=== PATIENT | male | born 1990 | race African-American/Black ===

== ENCOUNTER 2020-08-15 03:11 | Emergency (ER) | payer MEDICARE, MEDICAID, SELFPAY ==
--- NOTE | ~2020-08-15 | CT_ITS ---
EXAMINATION: CT brain wo con DATE: 08/15/2020 03:59 INDICATION: Syncope. Cerebral palsy. TECHNIQUE: Computed tomography (CT) of the head was performed without intravenous contrast. The mA wa s adjusted according to patient size. Iterative reconstruction technique was employed. The dose-lengt h product was 605.33 mGy-cm. COMPARISON: None FINDINGS: There is symmetric chronic volume loss in the parietal lobes. There is no intracranial hemo rrhage, acute infarction, or abnormal intracranial mass lesion. There is ex vacuo dilatation of the p osterior bodies and occipital horns of the lateral ventricles. The orbits are normal. There is mild m ucosal thickening in the ethmoid sinuses. The mastoid air cells are normal. IMPRESSION: 1. Symmetric chronic volume loss in the parietal lobes. Reviewed, dictated and finalized at location A.
[2020-08-15 03:07] VITALS: BP 124/85; PULSE 80; RESP 87; TEMP 36.9; O2SAT 99
[2020-08-15 03:13] VITALS: BP 124/85; PULSE 75; RESP 20; TEMP 36.9; O2SAT 100
--- NOTE | 2020-08-15 03:14 | PC.NURSE ---
Pt presents to ED with complaints of constantly losing time after taking acyclovir. Pt states prior to loss of time his head become really itchy and then he black out . Pt states same episode occurred tonight while at work and in restroom. Pt states he doesn't remember going to the bathroom but he woke up approx 30 mins later unaware of what happened. Pt states he was sitting on toilet prior to loc and woke up and was still on the toilet; denies fall and hitting head. No obvious wounds or injuries to head or face. Pt noted to be a/o x4 and in no obvious distress with stable vitals. Call button and personal items within reach. Pt advised to press call button for assistance.
--- NOTE | 2020-08-15 03:22 | PC.NURSE ---
EDMD presented to bedside.
--- NOTE | 2020-08-15 03:31 | ECG_ITS ---
Measurements Intervals [place] Rate: 69 P: 30 UT: 191 QRS: 39 QRSD: 80 T: 40 QT: 393 QTc: 423 Interpretive Statements SINUS RHYTHM LEFT ATRIAL ENLARGEMENT BORDERLINE ECG Electronically Signed On 08-15-2020 14:35:00 CDT by Luciano Preston D.O.
--- NOTE | 2020-08-15 03:41 | ED.SYNCOPE ---
HPI - Syncope General Chief Complaint: Skin/Abscess/Foreign Body Stated Complaint: Scalp itching, loss of time Time Seen by Provider: 08/15/20 03:31 Source: patient Mode of arrival: ambulatory Limitations: no limitations History of Present Illness HPI narrative: Patient is a 29-year-old male complaining of a syncopal episode after a bowel movement. Patient states that he went to the restroom at work had a bowel movement and next thing he woke up and cannot recall what happened. 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 Patient denies any speech or visual disturbance, focal weakness or numbness. Patient denies any dizziness, neck pain, chest pain, shortness of breath, abd pain, nausea, vomiting, fever or chills. Patient currently asymptomatic at this time. Related Data Allergies Allergy/AdvReac Type Severity Reaction Status Date / Time ondansetron [From Zofran] Allergy Hives Verified 08/15/20 03:12 Review of Systems Review of Systems: All systems reviewed & are unremarkable except as noted in HPI and below Constitutional: Constitutional: Denies body ache(s), Denies chills, Denies excessive sweating, Denies fatigue, Denies fever(s), Denies headache(s), Denies lethargy, Denies malaise, Denies weakness and Denies weight loss Eyes: Eyes: Denies blurry vision, Denies change in vision and Denies loss of vision ENT: Denies dizziness, Denies ear discharge, Denies headache(s), Denies lip swelling, Denies epistaxis, Denies nasal congestion, Denies neck pain, Denies throat swelling and Denies tongue swelling Cardiovascular: Cardiovascular: Denies chest pain, Denies chest pain at rest, Denies chest pain with activity, Denies diaphoresis, Denies rapid heart rate, Denies edema, Denies irregular heart rhythm, Denies lightheadedness, Denies palpitations, Denies dyspnea and Denies dyspnea on exertion Respiratory: Respiratory: Denies chest congestion, Denies cough, Denies hemoptysis, Denies dyspnea and Denies dyspnea on exertion Gastrointestinal: Gastrointestinal: Denies abdominal pain, Denies melena, Denies hematochezia, Denies diarrhea, Denies nausea, Denies vomiting and Denies hematemesis Musculoskeletal: Musculoskeletal: Denies abnormal gait, Denies deformity, Denies joint swelling, Denies limited range of motion, Denies neck pain and Denies numbness Neurologic: Denies Abnormal speech present, Denies abnormal gait, Denies confusion, Denies dizziness, Denies headache(s), Denies focal weakness, Denies loss of vision, Denies numbness, Denies Other visual disturbances, Denies Sensory deficit (Neuro) and Denies weakness Psychiatric: Psychiatric: Denies confusion, Denies depression, Denies auditory hallucinations, Denies homicidal ideation and Denies suicidal ideation Endocrine: Endocrine: Denies cold intolerance, Denies excessive sweating, Denies fatigue, Denies heat intolerance and Denies palpitations Hematologic/Lymphatic: Hematologic/Lymphatic: Denies easy bleeding and Denies easy bruising Allergic/Immunologic: Allergic/Immunologic: Denies lip swelling, Denies throat swelling and Denies tongue swelling PMFSH Social History Social History Gender identity (if verbalized by the patient): Male Comments Past medical history: Cerebral palsy Family history: Noncontributory Social history: Non-smoker, no EtOH or drug use Exam Const: General: cooperative, healthy appearing, comfortable, no acute distress, well developed, alert and awake; No confusion Orientation/consciousness: oriented to person, oriented to place, oriented to time, patient oriented x3 and No confusion Limitations: no limitations HENMT: Head: normal to inspection, normocephalic and atraumatic Ears: hearing grossly normal bilaterally, TM normal on the right and TM normal on the left General nose exam: Normal external nose present, Normal nares present and No nasal discharge present Face and sinus: norm
[2020-08-15] MEDS: SODIUM CHLORIDE 0.9% IV 1,000 ML 999 ML IV CONT (03:43)
--- NOTE | 2020-08-15 03:52 | PC.NURSE ---
Pt to radiology via cart.
--- NOTE | 2020-08-15 04:02 | PC.NURSE ---
pt returned from radiology and is now back in room resting on cart in its lowest position with call button and personal items within reach. Pt advised to press call button for assistance.
[2020-08-15 04:03] LABS: Anion Gap 8 mmol/L (8-16); Blood Urea Nitrogen 19 mg/dL (9-20); Carbon Dioxide 24 mmol/L (22-30); Chloride 105 mmol/L (98-107); Estimated CRCL calculation 88 ml/min; Estimated Glomerular Filt Rate > 60; Glucose 82 mg/dL (75-110); Potassium 4.3 mmol/L (3.4-5.0); Sodium 137 mmol/L (137-145)
[2020-08-15 04:04] LABS: Basophils Absolute Auto 0.1 K/mm3 (0.0-0.1); Basophils Percent Auto 0.8 % (0.2-1.2); Eosinophils Absolute Auto 0.1 K/mm3 (0-0.3); Eosinophils Percent Auto 1.2 % (0-4.4); Hematocrit 41.7 % (42.0-52.0); Immature Granulocyte Absolute 0.02 K/mm3 (0.00-0.031); Immature Granulocyte Percent A 0.2 % (0-0.5); Lymphocytes Absolute Auto 3.04 K/mm3 (0.9-3.2); Lymphocytes Percent Auto 33.5 % (18.3-44.2); Mean Corpuscular HGB Conc 33.6 g/dl (32-36); Mean Corpuscular Hemoglobin 32.5 pg (26-34); Mean Corpuscular Volume 96.8 fl (80-100); Mean Platelet Volume 11.8 fl (7.4-10.4); Monocytes Absolute Auto 0.9 K/mm3 (0.1-0.6); Monocytes Percent Auto 9.4 % (2.6-8.5); Neutrophils Percent Auto 54.9 % (45.5-73.1); Platelet Count Result 166 k/mm3 (150-375); Red Blood Count 4.31 M/mm3 (4.6-6.20); Red Cell Distribution Width 11.8 % (11.5-14.5); White Blood Count 9.1 K/mm3 (4.5-10.0)
[2020-08-15 04:14] LABS: Troponin I < 0.012 ng/mL (0.000-0.034)
[2020-08-15 05:23] VITALS: BP 145/95; PULSE 98; RESP 20; O2SAT 98
[2020-08-15 05:29] LABS: D Dimer < 0.22 ug/mL (<0.48)
--- NOTE | 2020-08-15 05:35 | PC.NURSE ---
Pt resting at bedside and is a/o x4 and in no obvious distress. Vitals are stable and no complaints or concerns voiced at this time.
[2020-08-15 06:11] VITALS: BP 145/95; PULSE 98; RESP 20; TEMP 37.2; O2SAT 98
[2020-08-15 06:12] VITALS: BP 145/95; PULSE 98; RESP 20; TEMP 37.2; O2SAT 98
== END 2020-08-15 06:13 | disposition home or self-care (01) ==
PROVIDERS: Emergency Provider Emergency Medicine; PCP Internal Medicine
DX: R55 Syncope and collapse (principal); G80.9 Cerebral palsy, unspecified
CPT/HCPCS: 36415; 70450; 80048; 84484; 85025; 85380; 93005; 96360; 99284; J7030

== ENCOUNTER 2020-11-18 01:37 | Emergency (ER) | payer MEDICARE, MEDICAID, SELFPAY ==
[2020-11-18 02:03] VITALS: BP 144/91; PULSE 78; RESP 20; TEMP 36.7; O2SAT 100
[2020-11-18 02:24] VITALS: TEMP 36.4
[2020-11-18 04:17] LABS: HIV 1/2 Ab P24 Ag Result Negative (Negative)
--- NOTE | 2020-11-18 04:55 | ED.GENADULT ---
HPI - General Adult General Chief complaint: Urogenital-Male Stated complaint: std test Time Seen by Provider: 11/18/20 01:49 History of Present Illness HPI narrative: Patient is a 30-year-old male who presents ER with concerns that he may have contracted HIV. He last had sex in March 2020. Several months later he was diagnosed with HSV of his genitals. He has been taking acyclovir. This got him wondering whether he could have contracted something else. He has no new outbreaks at this time. No urethral discharge or testicular pain. Related Data Allergies Allergy/AdvReac Type Severity Reaction Status Date / Time ondansetron [From Zofran] Allergy Hives Verified 08/15/20 03:12 Review of Systems Constitutional: Constitutional: Denies chills and Denies fever(s) Gastrointestinal: Gastrointestinal: Denies abdominal pain, Denies nausea and Denies vomiting Genitourinary: Genitourinary: Denies hematuria, Denies dysuria, Denies penile discharge, Denies testicular pain and Denies urinary frequency PMFSH Past Medical History Medical History (Updated 11/18/20 @ 05:00 by Demetrio Choudhury MD) Cerebral palsy HSV-2 (herpes simplex virus 2) infection Surgical History Surgical History (Updated 11/18/20 @ 04:57 by Demetrio Choudhury MD) No pertinent past surgical history Social History Social History Gender identity (if verbalized by the patient): Male Exam Narrative: GENERAL: Well-appearing, well-nourished, and in no acute distress. HEAD: Normocephalic, atraumatic. : Normal external genitalia with circumcised penis free of lesions. No urethral discharge. No testicular tenderness. EXTREMITIES: Ambulates steadily. Spasticity noted in the extremities. Normal strength. SKIN: Warm, dry, no rash. NEURO: Alert and oriented x3. PSYCH: Normal mood and affect. Course Course Emergency Course: Informed of results. Discharge home. Vital Signs Vital signs: Vital Signs Temperature 98.1 F 11/18/20 02:03 Pulse Rate 78 11/18/20 02:03 Respiratory Rate 20 11/18/20 02:03 Blood Pressure 144/91 H 11/18/20 02:03 Pulse Oximetry 100 11/18/20 02:03 Temperature 97.5 F L 11/18/20 02:24 Pulse Rate 78 11/18/20 02:03 Respiratory Rate 20 11/18/20 02:03 Blood Pressure 144/91 H 11/18/20 02:03 Pulse Oximetry 100 11/18/20 02:03 Medical Decision Making Vital Signs Vital Signs: Vital Signs Temperature 98.1 F 11/18/20 02:03 Pulse Rate 78 11/18/20 02:03 Respiratory Rate 20 11/18/20 02:03 Blood Pressure 144/91 H 11/18/20 02:03 Pulse Oximetry 100 11/18/20 02:03 Temperature 97.5 F L 11/18/20 02:24 Pulse Rate 78 11/18/20 02:03 Respiratory Rate 20 11/18/20 02:03 Blood Pressure 144/91 H 11/18/20 02:03 Pulse Oximetry 100 11/18/20 02:03 Lab Data Labs: Lab Results 11/18/20 Range/Units 02:32 HIV 1&2 Ab/P24 Ag 4thGn Negative (Negative) Discharge Plan Discharge Clinical Impression: Sexually transmitted disease counseling Patient Disposition: Home, Self-Care Condition: Stable Instructions: Safe Sex Practices (ED) Additional Instructions: Follow-up with your primary care doctor if you have any additional concerns regarding sexually transmitted infections. Return the ER if you have chest pain or shortness of breath, you cannot keep down food or water, you lose consciousness, or you have other concerns. Follow-up/Referrals: Frantz,Piedad Linder MD [Primary Care Provider] - 1 Week
== END 2020-11-18 05:15 | disposition home or self-care (01) ==
PROVIDERS: Emergency Provider Emergency Medicine; PCP Internal Medicine
DX: Z70.8 Other sex counseling (principal); Z11.4 Encounter for screening for human immunodeficiency virus [HIV]; A60.00 Herpesviral infection of urogenital system, unspecified
CPT/HCPCS: 36415; 86703; 99283; G0432

== ENCOUNTER 2021-01-07 01:54 | Emergency (ER) | payer MEDICARE, MEDICAID, SELFPAY ==
[2021-01-07 02:03] VITALS: BP 128/67; PULSE 75; RESP 14; TEMP 36.1; O2SAT 98
--- NOTE | 2021-01-07 03:30 | ED.GENADULT ---
HPI - General Adult General Chief complaint: Unspecified Stated complaint: Prickling senstations, pain to back and side Time Seen by Provider: 01/07/21 03:20 History of Present Illness HPI narrative: Patient 28-year-old gentleman who presents the emergency department with chief complaint of pinpricks in his back. Patient states he works at [employer] reports that he has had feelings of like little tiny needles poking around his shoulder. Patient states pain is worse with movement and reports is also been having back pain. Patient denies bowel or bladder dysfunction denies any other focal neurological deficits. Related Data Allergies Allergy/AdvReac Type Severity Reaction Status Date / Time ondansetron [From Zofran] Allergy Hives Verified 01/07/21 02:42 Review of Systems Review of Systems: A 10 system review of systems was completed on the patient and is negative except for what is stated in the HPI. Nursing and ancillary documentation was reviewed. [facility] Past Medical History Medical History Cerebral palsy HSV-2 (herpes simplex virus 2) infection Surgical History Surgical History No pertinent past surgical history Social History Social History Gender identity (if verbalized by the patient): Male Exam Narrative: GENERAL: Well-appearing, well-nourished, and in no acute distress. HEAD: Normocephalic, atraumatic. EYES: PERRLA and EOMI. ENT: Nares clear, no rhinorrhea or epistaxis. Mucous membranes moist. NECK: Supple. CHEST: Clear to auscultation. No respiratory distress. HEART: Regular rate and rhythm. No murmur heard. Normal peripheral pulses. ABDOMEN: Soft, nontender, nondistended, normal active bowel sounds. EXTREMITIES: Normal range of motion. No edema. SKIN: Warm, dry, no rash. NEURO: No focal deficits. Alert and oriented x3. PSYCH: Normal mood and affect. Course Vital Signs Vital signs: Vital Signs Temperature 36.1 C L 01/07/21 02:03 Pulse Rate 75 01/07/21 02:03 Respiratory Rate 14 01/07/21 02:03 Blood Pressure 128/67 01/07/21 02:03 Pulse Oximetry 98 01/07/21 02:03 Temperature 36.1 C L 01/07/21 02:03 Pulse Rate 75 01/07/21 02:03 Respiratory Rate 14 01/07/21 02:03 Blood Pressure 128/67 01/07/21 02:03 Pulse Oximetry 98 01/07/21 02:03 Medical Decision Making Vital Signs Vital Signs: Vital Signs Temperature 36.1 C L 01/07/21 02:03 Pulse Rate 75 01/07/21 02:03 Respiratory Rate 14 01/07/21 02:03 Blood Pressure 128/67 01/07/21 02:03 Pulse Oximetry 98 01/07/21 02:03 Temperature 36.1 C L 01/07/21 02:03 Pulse Rate 75 01/07/21 02:03 Respiratory Rate 14 01/07/21 02:03 Blood Pressure 128/67 01/07/21 02:03 Pulse Oximetry 98 01/07/21 02:03 Discharge Plan Discharge Clinical Impression: Back pain Qualifiers: Back pain location: thoracic back pain Chronicity: acute Back pain laterality: left Qualified Code(s): M54.6 - Pain in thoracic spine Patient Disposition: Home, Self-Care Condition: Stable Instructions: Antibiotic Form, Back Pain (ED) Prescriptions: New cyclobenzaprine 10 mg tablet 10 mg PO TID PRN (Reason: muscle spasm) Qty: 21 RF: 0 ibuprofen 800 mg tablet 800 mg PO TID PRN (Reason: pain) Qty: 30 RF: 0 Follow-up/Referrals: Frantz,Piedad Linder MD [Primary Care Provider] - Time of Disposition: 03:34
== END 2021-01-07 03:40 | disposition home or self-care (01) ==
PROVIDERS: Emergency Provider Emergency Medicine; PCP Internal Medicine
DX: M54.9 Dorsalgia, unspecified (principal); G80.9 Cerebral palsy, unspecified
CPT/HCPCS: 99283

== ENCOUNTER 2021-02-27 07:23 | Outpatient (CLI) | payer MEDICARE, MEDICAID, SELFPAY ==
--- NOTE | ~2021-02-27 | US_ITS ---
EXAMINATION: US scrotum doppler DATE: 02/27/2021 08:09 INDICATION: Testicular pain TECHNIQUE: Testicular sonogram utilizing grayscale and Doppler COMPARISON: None. FINDINGS: The right testis measures 4.1 x 3.0 x 2.8 cm. The left testis measures 4.2 x 3.0 x 2.4 cm. Symmetric normal grayscale appearance to both testes. There is normal vascular flow to both testes. The right e pididymis is normal with normal vascular flow. The left epididymis is normal with normal vascular magaly w. There is no varicocele or hydrocele. IMPRESSION: 1. Normal scrotal ultrasound. Reviewed, dictated and finalized at location A. P [employer]
== END 2021-02-27 07:24 | disposition home or self-care (01) ==
LOC: ANHIMG 07:27
PROVIDERS: PCP Internal Medicine
DX: N50.819 Testicular pain, unspecified (principal)
CPT/HCPCS: 76870; 93976

== ENCOUNTER 2021-03-05 21:07 | Emergency (ER) | payer MEDICARE, MEDICAID, SELFPAY ==
[2021-03-05 21:16] VITALS: BP 128/84; PULSE 87; RESP 16; TEMP 36.3; O2SAT 97
--- NOTE | 2021-03-05 21:33 | ED.URI ---
HPI - URI/Sore Throat General Chief Complaint: Upper Respiratory Infection Stated Complaint: sore throat Time Seen by Provider: 03/05/21 21:28 Source: patient Mode of arrival: ambulatory Limitations: no limitations History of Present Illness HPI Narrative: 30-year-old here with complaints of sore throat he states that there is something stuck in the back of his throat since this morning. He denies any fever or chills. He is able to swallow water without any difficulty. elicited complaint: sore throat Onset (ago): day(s) (1) Consistency: constant Exacerbating factors: nothing Relieving factors: nothing Related Data Allergies Allergy/AdvReac Type Severity Reaction Status Date / Time ondansetron [From Zofran] Allergy Hives Verified 01/07/21 02:42 Review of Systems Review of Systems: All systems reviewed & are unremarkable except as noted in HPI and below Constitutional: Constitutional: Reports no additional constitutional complaints Eyes: Eyes: Reports no additional eye complaints ENT: Reports as per HPI Cardiovascular: Cardiovascular: Reports no additional cardiovascular complaints Respiratory: Respiratory: Reports no additional respiratory complaints Gastrointestinal: Gastrointestinal: Reports no additional gastrointestinal complaints Musculoskeletal: Musculoskeletal: Reports no additional musculoskeletal complaints Integumentary/Breasts: Skin/Breast: Reports system reviewed and no additional complaints, except as docu Neurologic: Reports system reviewed and no additional complaints, except as documented PMFSH Past Medical History Medical History Cerebral palsy HSV-2 (herpes simplex virus 2) infection Surgical History Surgical History No pertinent past surgical history Social History Social History Gender identity (if verbalized by the patient): Male Exam Narrative: GENERAL: Well-appearing, well-nourished, and in no acute distress. HEAD: Normocephalic, atraumatic. EYES: PERRLA and EOMI. ENT: Nares clear, no rhinorrhea or epistaxis. Mucous membranes moist. Uvula is edematous and long. Tonsils appear normal NECK: Supple. CHEST: Clear to auscultation. No respiratory distress. HEART: Regular rate and rhythm. No murmur heard. Normal peripheral pulses. EXTREMITIES: Normal range of motion. No edema. SKIN: Warm, dry, no rash. NEURO: No focal deficits. Alert and oriented x3. PSYCH: Normal mood and affect. Course Vital Signs Vital signs: Vital Signs Temperature 36.3 C L 03/05/21 21:16 Pulse Rate 87 03/05/21 21:16 Respiratory Rate 16 03/05/21 21:16 Blood Pressure 128/84 03/05/21 21:16 Pulse Oximetry 97 03/05/21 21:16 Temperature 36.3 C L 03/05/21 21:16 Pulse Rate 87 03/05/21 21:16 Respiratory Rate 16 03/05/21 21:16 Blood Pressure 128/84 03/05/21 21:16 Pulse Oximetry 97 03/05/21 21:16 Discharge Plan Discharge Clinical Impression: Uvulitis Patient Disposition: Home, Self-Care Condition: Stable Instructions: Antibiotic Form, Uvulitis (ED) Prescriptions: New prednisone 20 mg tablet 20 mg PO BID Qty: 10 RF: 0 No Action cyclobenzaprine 10 mg tablet 10 mg PO TID PRN (Reason: muscle spasm) Qty: 21 RF: 0 ibuprofen 800 mg tablet 800 mg PO TID PRN (Reason: pain) Qty: 30 RF: 0 Follow-up/Referrals: Frantz,Piedad Linder MD [Primary Care Provider] - Time of Disposition: 21:34
[2021-03-05 21:43] VITALS: BP 120/83; PULSE 82; RESP 18; TEMP 36.4; O2SAT 98
== END 2021-03-05 21:53 | disposition home or self-care (01) ==
LOC: ANHED 21:36
PROVIDERS: Emergency Provider Family Medicine; PCP Internal Medicine
DX: K12.2 Cellulitis and abscess of mouth (principal); G80.9 Cerebral palsy, unspecified
CPT/HCPCS: 99283